=== PATIENT | female | born 1940 | race Caucasian/White ===

== ENCOUNTER 2025-05-15 12:35 | Inpatient (IN) | payer OTHER ==
[2025-05-15 12:49] VITALS: BMI 40.0
[2025-05-15 13:23] LABS: EPITHELIAL CELLS FEW /hpf
[2025-05-15 13:34] LABS: MCHC 32.1 g/dl (32.2-35.5); MEAN CELL VOLUME 91.7 fl (79.4-94.8); MEAN PLT VOLUME 10.0 fl (9.4-12.3); RDW 12.8 % (12.5-17.0)
[2025-05-15] MEDS: VERAPAMIL HCL 240 MG E.R. TABLET PO ONE (13:36)
[2025-05-15 13:55] LABS: ALK PHOS 117.0 U/L (45-117); CO2 24.0 mmol/L (21-32); CREATININE 1.7 mg/dl (0.6-1.3); GLUCOSE,RANDOM 126.0 mg/dl (74-106); SGOT/AST 13.0 U/L (15-37); SGPT/ALT 8.0 U/L (7-52); TOT PROT 6.8 g/dl (6.4-8.2)
[2025-05-15] MEDS: SODIUM CHLORIDE 0.9% 1000 ML INFUS.BAG IV ONE (14:25)
[2025-05-15] MEDS: CEFTRIAXONE 1 GM in DEXTROSE 5%-WATER - 100 ML IVPB ONE (14:52)
[2025-05-15 15:59] LABS: HCV DIAGNOSTIC IN-HOUSE W/RFLX NON-REACTIVE (NONREACTIVE); HIV INTERPRETATION NEGATIVE (NEGATIVE)
[2025-05-15] MEDS: SODIUM CHLORIDE 0.9% 500 ML INFUS.BAG IV ONE (20:07)
[2025-05-15 21:15] LABS: LDL CHOLESTEROL (ONLY DFH) 105.0 mg/dL (5-100)
[2025-05-15] MEDS: HEPARIN NA (PORCINE) 5,000 UNITS/ML 1ML VIAL SQ SCH (22:04)
[2025-05-15] MEDS: NYSTATIN POWDER 100,000 UNITS/GM - 15 GM TOPICAL POWDER TP SCH (22:04)
[2025-05-15] MEDS: LACTATED RINGERS SOLUTION 1,000 ML/1,000 ML INFUS.BAG IV SCH (22:05)
[2025-05-16 08:34] LABS: ABSOLUTE IMMATURE GRANULOCYTES 0.04 x10^3/uL (0.0-0.031); BASOPHILS # 0.02 x10^3/uL (0.01-0.08); EOSINOPHIL % 0.4 % (0.7-5.8); EOSINOPHILS # 0.05 x10^3/uL (0.04-0.36); MCHC 31.9 g/dl (32.2-35.5); MEAN CELL VOLUME 92.9 fl (79.4-94.8); MEAN PLT VOLUME 10.2 fl (9.4-12.3); MONOCYTE # 1.14 x10^3/uL (0.24-0.86); MONOCYTE % 8.5 % (4.7-12.5); RDW 12.8 % (12.5-17.0)
[2025-05-16 09:21] LABS: ALK PHOS 122.0 U/L (45-117); CO2 26.0 mmol/L (21-32); CREATININE 1.8 mg/dl (0.6-1.3); GLUCOSE,RANDOM 77.0 mg/dl (74-106); SGOT/AST 17.0 U/L (15-37); SGPT/ALT 10.0 U/L (7-52); TOT PROT 6.1 g/dl (6.4-8.2)
[2025-05-16] MEDS: CEFTRIAXONE 1 GM in DEXTROSE 5%-WATER - 50 ML IVPB SCH (09:28)
[2025-05-16] MEDS: VERAPAMIL HCL 240 MG E.R. TABLET PO SCH (09:29)
[2025-05-16] MEDS: PANTOPRAZOLE 40 MG TABLET PO SCH (09:29)
[2025-05-17 09:08] LABS: ABSOLUTE IMMATURE GRANULOCYTES 0.04 x10^3/uL (0.0-0.031); BASOPHILS # 0.02 x10^3/uL (0.01-0.08); EOSINOPHIL % 1.1 % (0.7-5.8); EOSINOPHILS # 0.15 x10^3/uL (0.04-0.36); MCHC 31.6 g/dl (32.2-35.5); MEAN CELL VOLUME 91.5 fl (79.4-94.8); MEAN PLT VOLUME 9.8 fl (9.4-12.3); MONOCYTE # 0.29 x10^3/uL (0.24-0.86); MONOCYTE % 2.1 % (4.7-12.5); RDW 12.7 % (12.5-17.0)
[2025-05-17 09:36] LABS: CO2 26.0 mmol/L (21-32); CREATININE 1.7 mg/dl (0.6-1.3); GLUCOSE,RANDOM 135.0 mg/dl (74-106)
[2025-05-17] MEDS: LACTOBACILLUS ACIDOPHILUS 1 TABLET PO SCH (10:06)
[2025-05-17] MEDS: MAGNESIUM OXIDE 400 MG TABLET (FP) PO ONE (10:06)
[2025-05-17] MEDS: guaiFENesin/D-METHORPHAN HB 10 ML UNIT-DOSE CUPS PO PRN (11:12)
[2025-05-18 08:04] LABS: MCHC 32.0 g/dl (32.2-35.5); MEAN CELL VOLUME 92.1 fl (79.4-94.8); MEAN PLT VOLUME 9.9 fl (9.4-12.3); RDW 12.7 % (12.5-17.0)
[2025-05-18 10:02] LABS: CO2 27.0 mmol/L (21-32); CREATININE 1.5 mg/dl (0.6-1.3); GLUCOSE,RANDOM 95.0 mg/dl (74-106)
[2025-05-18 15:17] VITALS: BP 116/58; PULSE 92; RESP 48; TEMP 99.1
== END 2025-05-18 18:16 | disposition home or self-care (01) | DRG 690 ==
LOC: FER 12:35 → OBSVTOIN 15:43 → FM/S 15:43
PROVIDERS: ADMIT Internal Medicine; ATTEND Internal Medicine
DX: N39.0 Urinary tract infection, site not specified (principal); I24.89 Other forms of acute ischemic heart disease; I50.30 Unspecified diastolic (congestive) heart failure; Z68.41 Body mass index [BMI] 40.0-44.9, adult; B96.20 Unspecified Escherichia coli [E. coli] as the cause of diseases classified elsewhere; E86.0 Dehydration; N28.1 Cyst of kidney, acquired; E78.5 Hyperlipidemia, unspecified; I12.9 Hypertensive chronic kidney disease with stage 1 through stage 4 chronic kidney disease, or unspecified chronic kidney disease; E66.01 Morbid (severe) obesity due to excess calories; K21.9 Gastro-esophageal reflux disease without esophagitis; N18.9 Chronic kidney disease, unspecified
CPT/HCPCS: 36415; 71045-TC-FY; 76775-TC; 80048; 80053; 80061; 81003; 81015; 82550; 82607; 82746; 82962; 83036; 83735; 84100; 84439; 84443; 84484; 85025; 85027; 86803; 87086; 87389; 87637-QW; 93005; 93010; 93306-TC; 97116-GP; 97161-GP; 99285-25